=== PATIENT | male | born 1985 ===

== ENCOUNTER 2018-05-19 09:02 | Emergency (ER) | payer OTHER ==
[2018-05-19] MEDS ORDERED: Belladonna-Phenobarbital PO STA (10:22)
[2018-05-19] MEDS ORDERED: Sodium Chloride 0.9% 1,000 ML IV ONE (10:22)
[2018-05-19] MEDS ORDERED: Belladonna-Phenobarbital ONE (10:33)
--- NOTE | 2018-05-19 10:35 | C.PDOC ---
History Of Present Illness 33 year old male, with no significant past medical history, presents to the ED for evaluation of severe abdominal pain that has been constant for the past 2 days. Patient also reports decreased appetite, stating his pain worsens after eating. He reports dizziness when he has not eaten for a while. Patient also complains of minor pleuritic chest pain. He reports fever and chills yesterday. He denies nausea, vomiting, diarrhea, dysuria, hematuria, recent travel, eating new foods, or sick contacts. Time Seen by Provider: 05/19/18 09:49 Chief Complaint (Nursing): Abdominal Pain History Per: Patient History/Exam Limitations: no limitations Onset/Duration Of Symptoms: Days (2) Current Symptoms Are (Timing): Still Present Severity: Severe Location Of Pain/Discomfort: Diffuse Radiation Of Pain To:: None Quality Of Discomfort: "Pain" Associated Symptoms: Fever, Chills, Loss Of Appetite, Chest Pain (pleuritic). denies: Nausea, Vomiting, Diarrhea, Urinary Symptoms Exacerbating Factors: Food Alleviating Factors: None Recent travel outside of the [place]: No Additional History Per: Patient Past Medical History Reviewed: Historical Data, Nursing Documentation, Vital Signs Vital Signs: Last Vital Signs Temp 99.7 F H 05/19/18 09:04 Pulse 103 H 05/19/18 09:04 Resp 18 05/19/18 09:04 BP 136/88 05/19/18 09:04 Pulse Ox 99 05/19/18 09:04 - Medical History PMH: No Chronic Diseases Surgical History: No Surg Hx Family History: States: Unknown Family Hx - Social History Hx Alcohol Use: No Hx Substance Use: No - Immunization History Hx Tetanus Toxoid Vaccination: No Hx Influenza Vaccination: No Hx Pneumococcal Vaccination: No Review Of Systems Cardiovascular: Positive for: Chest Pain Gastrointestinal: Positive for: Abdominal Pain. Negative for: Nausea, Vomiting, Diarrhea Genitourinary: Negative for: Dysuria, Hematuria Physical Exam - Physical Exam Appears: Non-toxic, No Acute Distress Skin: Normal Color, Warm, Dry Head: Atraumatic, Normacephalic Eye(s): bilateral: Normal Inspection Oral Mucosa: Moist Neck: Supple Chest: Symmetrical, No Deformity, No Tenderness Cardiovascular: Rhythm Regular, No Murmur Respiratory: Normal Breath Sounds, No Rales, No Rhonchi, No Wheezing Gastrointestinal/Abdominal: Soft, No Tenderness, No Guarding, No Rebound Extremity: Normal ROM, Capillary Refill (less than 2 seconds ) Neurological/Psych: Oriented x3, Normal Speech, Normal Cognition ED Course And Treatment - Laboratory Results Result Diagrams: 05/19/18 10:44 05/19/18 10:44 ECG: Interpreted By Me, Viewed By Me ECG Rhythm: Sinus Tachycardia Interpretation Of ECG: Sinus Tachycardia at rate 100bpm. Normal ST/T waves. No axis deviation. Rate From EC O2 Sat by Pulse Oximetry: 99 (on RA) Pulse Ox Interpretation: Normal Medical Decision Making Medical Decision Making: Progress: Bloodwork, urinalysis, EKG, Obstructive Series Abdomen ordered and reviewed. PO, Pepcid IVP, Toradol IVP, Zofran IVP, and IV Fluids given. Disposition - Disposition Referrals: [facility] [Outside] Disposition: HOME/ ROUTINE Disposition Time: 12:31 Condition: STABLE Additional Instructions: Follow up with the medical doctor within 1-2 days without fail. return if worsened. 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 - Scribe Statement The provider has reviewed the documentation as recorded by the Scribe (Pam Montelongo) All medical record entries made by the Scribe were at my direction and personally dictated by me. I have reviewed the chart and agree that the record accurately reflects my personal performance of the history, physical exam, medical decision making, and the department course for this patient. I have also personally directed, reviewed, and agree with the discharge instructions and disposition.
[2018-05-19 10:50] LABS: BASO % 0.2 % (0.0-2.0); HEMOGLOBIN 15.6 g/dL (12.0-18.0); LYMPH # 0.9 K/uL (1.0-4.3); LYMPH % 17.7 % (20.0-40.0); MEAN CELL VOLUME 83.3 fL (80.0-94.0); MEAN CORPUSCULAR HEMOGLOBIN 28.5 pg (27.0-31.0); MEAN CORPUSCULAR HGB CONC 34.2 g/dL (33.0-37.0); MEAN PLATELET VOLUME 7.2 fL (7.2-11.7); MONO # 0.4 K/uL (0.0-0.8); MONO % 8.4 % (0.0-10.0); NEUT # 3.8 K/uL (1.8-7.0); NEUT % 73.7 % (50.0-75.0); RBC 5.46 Mil/uL (4.40-5.90); RED CELL DISTRIBUTION WIDTH 14.3 % (11.5-14.5); WHITE BLOOD COUNT 5.2 K/uL (4.8-10.8)
[2018-05-19 11:06] VITALS: RESP 16; TEMP 99
[2018-05-19 11:14] LABS: URINE BILIRUBIN NEGATIVE (NEGATIVE); URINE BLOOD 1+ (NEGATIVE); URINE CLARITY Clear (Clear); URINE COLOR Yellow (YELLOW); URINE GLUCOSE (UA) NORMAL (Normal); URINE LEUKOCYTE ESTERASE NEG Leu/uL (Negative); URINE PROTEIN NEGATIVE (NEGATIVE); URINE UROBILINOGEN NORMAL mg/dL (0.2-1.0)
[2018-05-19 11:17] LABS: ALB/GLOB RATIO 1.4 (1.0-2.1); ALBUMIN 4.3 g/dL (3.5-5.0); ALT/SGPT 56 U/L (21-72); AST/SGOT 57 U/L (17-59); BLOOD UREA NITROGEN 6 mg/dL (9-20); GFR NON-AFRICAN AMERICAN > 60; LIPASE 63 U/L (23-300)
[2018-05-19 12:34] VITALS: O2SAT 99
[2018-05-19 12:46] VITALS: BP 114/81; PULSE 72
--- NOTE | 2018-05-19 16:43 | RAD ---
Date of service: 05/19/2018 PROCEDURE: Radiographs of the chest and abdomen (obstructive series) HISTORY: epigas pain, dizziness COMPARISON: No prior. TECHNIQUE: AP radiograph of the chest, with upright and supine radiographs of the abdomen. FINDINGS: CHEST: Lungs: Clear. Cardiovascular: Normal size heart. No pulmonary vascular congestion. Pleura: No pleural fluid. No pneumothorax. Other findings: None. ABDOMEN AND PELVIS: Bowel: Unremarkable bowel gas pattern. No evidence of mechanical obstruction. Free air: None. Bones: Unremarkable. Other findings: None. IMPRESSION: Unremarkable radiographs of chest and abdomen. No evidence of mechanical bowel obstruction.
--- NOTE | 2018-05-20 21:45 | CARD ---
APPROVED REPORT Date of service: 05/19/2018 EKG Measurement Heart [id number] <Conclusion> Normal sinus rhythm Normal ECG
== END 2018-05-19 12:44 | disposition home or self-care (01) ==
LOC: C.ER 09:02
DX: K59.00 Constipation, unspecified (principal)
CPT/HCPCS: 74022; 80053; 81001; 83690; 85025; 93005; 96361; 96374; 96375; 99285; J1885; J2405; J7030

== ENCOUNTER 2018-05-20 10:04 | Emergency (ER) | payer OTHER ==
[2018-05-20 10:10] VITALS: TEMP 99.7; O2SAT 99
[2018-05-20] MEDS ORDERED: DiphenhydrAMINE 50 mg/ml Inj IVP STA (10:49)
[2018-05-20] MEDS ORDERED: MethylPREDNISolone 40 mg Vial IVP STA (10:49)
[2018-05-20] MEDS ORDERED: MethylPREDNISolone 40 mg Vial ONE (11:04)
[2018-05-20] MEDS ORDERED: Sodium Chloride 0.9% 100 ML ONE (11:04)
[2018-05-20] MEDS ORDERED: DiphenhydrAMINE 50 mg/ml Inj ONE (11:04)
--- NOTE | 2018-05-20 11:08 | C.PDOC ---
History Of Present Illness 33 year old male presents to the ED for evaluation of an itchy rash which began yesterday evening. Patient was evaluated in this ED yesterday for complaints of abdominal pain and was given , Pepcid, Toradol and Zofran. Patient was discharged with prescriptions after he found improvement in his symptoms. Patient states he developed hives after going home later that day. He reports being unable to sleep because of the itchiness. He states the abdominal pain has resolved, and he has not taken any of his prescription medications. Patient denies fever, chills, cough, shortness of breath, or trouble breathing. Time Seen by Provider: 05/20/18 10:22 Chief Complaint (Nursing): Allergic Reaction History Per: Patient History/Exam Limitations: no limitations Onset/Duration Of Symptoms: Hrs Current Symptoms Are (Timing): Still Present Quality Of Symptoms: Itching Additional History Per: Patient Past Medical History Reviewed: Historical Data, Nursing Documentation, Vital Signs Vital Signs: Last Vital Signs Temp 99.7 F H 05/20/18 10:08 Pulse 103 H 05/20/18 10:08 Resp 16 05/20/18 10:08 BP 134/86 05/20/18 10:08 Pulse Ox 99 05/20/18 10:08 - Medical History PMH: No Chronic Diseases Surgical History: No Surg Hx Family History: States: Unknown Family Hx - Social History Hx Alcohol Use: No Hx Substance Use: No - Immunization History Hx Tetanus Toxoid Vaccination: No Hx Influenza Vaccination: No Hx Pneumococcal Vaccination: No Review Of Systems Skin: Positive for: Rash Physical Exam - Physical Exam Appears: Non-toxic, No Acute Distress Skin: Warm, Dry, Other ( hives to scalp, back and chest with sparing of legs ) Head: Atraumatic, Normacephalic Eye(s): bilateral: Normal Inspection Oral Mucosa: Moist Neck: Supple Chest: Symmetrical, No Deformity, No Tenderness Cardiovascular: Rhythm Regular, No Murmur Respiratory: Normal Breath Sounds, No Rales, No Rhonchi, No Wheezing, Other (speaking in complete sentences ) Extremity: Normal ROM, Capillary Refill (less than 2 seconds ) Neurological/Psych: Oriented x3, Normal Speech, Normal Cognition ED Course And Treatment ECG: Interpreted By Me, Viewed By Me ECG Rhythm: Sinus Rhythm Interpretation Of ECG: Normal Sinus Rhythm at rate 100bpm. Rate From EC O2 Sat by Pulse Oximetry: 99 (on RA) Pulse Ox Interpretation: Normal Progress Note: Benadryl IVP and Solu-Medrol IVP given. Reevaluation Time: 13:03 Reassessment Condition: Improved Disposition Counseled Patient/Family Regarding: Studies Performed, Diagnosis, Need For Followup, Rx Given - Disposition Referrals: [facility] [Outside] [facility] [Outside] Disposition: HOME/ ROUTINE Disposition Time: 13:03 Condition: IMPROVED Prescriptions: DiphenhydrAMINE [Benadryl] 25 mg PO TID PRN #30 cap PRN Reason: Itching / Pruritus predniSONE [Prednisone] 60 mg PO DAILY #12 tab Instructions: Adverse Drug Reactions, Adult (DC) Forms: [employer] (Bengali) - Clinical Impression Clinical Impression: Allergic urticaria - Scribe Statement The provider has reviewed the documentation as recorded by the Scribe (Pam Montelongo) Provider Attestation: All medical record entries made by the Scribe were at my direction and personally dictated by me. I have reviewed the chart and agree that the record accurately reflects my personal performance of the history, physical exam, medical decision making, and the department course for this patient. I have also personally directed, reviewed, and agree with the discharge instructions and disposition.
[2018-05-20 13:31] VITALS: BP 120/72; PULSE 92; RESP 18
== END 2018-05-20 13:31 | disposition home or self-care (01) ==
LOC: C.ER 10:04
DX: L50.0 Allergic urticaria (principal)
CPT/HCPCS: 96374; 96375; 99284; J1200; J2920